=== PATIENT | male | born 2000 | race Caucasian/White ===

== ENCOUNTER 2021-10-16 06:46 | Emergency (ER) | payer OTHER ==
[~2021-10-16] VITALS: Ht 170.2 cm; Wt 83.9 kg
[2021-10-16 06:46] VITALS: BP 160/92
--- NOTE | 2021-10-16 06:46 | NUR ---
PT KATELYN GALICIA, TAKEN TO CHAIR B
--- NOTE | 2021-10-16 06:54 | NUR ---
ERMD EXAMINING PT
--- NOTE | 2021-10-16 07:18 | NUR ---
Patient discharged with v/s stable. Written and verbal after care instructions given and explained. Patient verbalized understanding. Police with in custody. All questions addressed prior to discharge. Advised to follow up with PMD.
[2021-10-16 07:19] VITALS: BP 160/92
== END 2021-10-16 07:18 | disposition home or self-care (01) ==
LOC: MED 06:46
DX: M54.50 Low back pain, unspecified (principal); V49.88XA Car occupant (driver) (passenger) injured in other specified transport accidents, initial encounter; Y93.89 Activity, other specified; Y92.89 Other specified places as the place of occurrence of the external cause; Y99.8 Other external cause status
CPT/HCPCS: 99283